=== PATIENT | female | born 1960 | race Caucasian/White ===

== ENCOUNTER → 2016-11-01 | Outpatient (CLI) | payer OTHER ==
[~2016-11-01] MED LIST: ADVAIR 100-501 EAC1 INH; AMLODIPINE BESYL5 MG PO; BENZTROPINE MESY1 MG PO; EFFEXOR XR75 MG PO; KCL 10 MEQ20 MEQ/100 PO; LIPITOR PO; METHSCOPOLAMINE5 MG PO; MOBIC15 MG PO; NEURONTIN PO; OXYCONTIN PO; OXYCONTIN30 MG PO; PROAIR HFA8.5 GM INH; ROBAXIN PO; SKELAXIN400 MG PO; TOPAMAX PO; TOPIRAMATE100 MG PO; VENLAFAXINE HC150 MG PO; VITAMIN B122500 MC1; VITAMIN D250000 UNIT PO; WELLBUTRIN SR PO
--- NOTE | ~2016-11-01 | CR63 ---
[facility] A Service of [facility] RADIOLOGY TEXT RESULTS PATIENT: APRIL OGDEN LOCATION: [facility] : [birth year] UNIT #: [id number] AGE: [address]: Edmond Giraldo MD SEX: F ORDER DR: [id number] [facility] [address] [place], [place] [address] [id number] O MR#: [id number] Acc #: [id number] NAME: APRIL OGDEN : 1960 SEX: F STUDY DATE/TIME: 11/01/2016 14:11 UNIT: [facility] ROOM: STUDY DESCRIPTION: CR Chest 2 View Attending Physician: Edmond Giraldo M.D. Referring Physician: Edmond Giraldo M.D. Ordering Physician: Edmond Giraldo M.D. Primary Care Physician: Marcy Kay M.D. MEDICAL IMAGING REPORT This report is preliminary unless electronic signature is present EXAM Chest PA and lateral 11/01/2016 HISTORY Osteoarthritis right hip, preop right total hip replacement, COPD. FINDINGS The heart is normal in size. The lungs are clear. There are no pleural effusions. IMPRESSION No active pulmonary disease. Dictated by... Kendall Uriarte M.D. THIS IS AN ELECTRONICALLY VERIFIED REPORT Kendall Uriarte M.D. at 11/03/2016 2:26 PM JOHN/evette TD: 11/02/2016 06:39 JOB #: [id number] MEDICAL IMAGING REPORT COPY
--- NOTE | ~2016-11-01 | EKG ---
PATIENT: APRIL OGDEN UNIT #: [id number] Ventricular Rate: 84 BPM Atrial Rate: 84 BPM P-R Interval: 122 ms QRS Duration: 76 ms Q-T Interval: 374 ms QTC Calculation(Bezet): 441 ms P Lajas: 74 degrees Calculated R Lajas: 48 degrees Calculated T Lajas: 60 degrees Diagnosis Line: Normal sinus rhythm Diagnosis Line: Normal ECG Diagnosis Line: When compared with ECG of 16-OCT-2015 16:45, Diagnosis Line: No significant change was found Diagnosis Line: Confirmed by EDVIN GRANDA MD ([id number]) on Diagnosis Line: 11/02/2016 4:11:01 PM INTERPRETING MD: JESUS ALBERTO CEDILLO
--- NOTE | ~2016-11-01 | CO ---
Unit #: [id number] #: [id number] Patient: APRIL OGDEN [id number] [address] [place], [place] [address] [id number] O MR#: [id number] NAME: APRIL OGDEN ROOM: Age: 56 Sex: F Admission Date: 11/01/2016 : 1960 Attending Physician: Edmond Giraldo M.D. Primary Care Physician: Marcy Kay M.D. Consultation Date: 11/01/2016 CONSULTATION REPORT REASON FOR CONSULTATION Preprocedure medical evaluation prior to right total hip arthroplasty scheduled by Dr. Giraldo for 11/15/2016. HISTORY OF PRESENT ILLNESS The patient is a 56-year-old female, who presents to preprocedural screening for the reason as indicated above. She reports pain in her right hip today and inability to spread her legs due to her hip. She has a history of chronic back pain and is established with Dr. Paul in pain management. She denies chest, arm, neck, back, jaw pain or pressure. Denies orthopnea, dyspnea on exertion, paroxysmal nocturnal dyspnea, or obstructive sleep apnea. She denies palpitations, lightheadedness, dizziness, presyncope, or syncope. She denies history of myocardial infarction, congestive heart failure, CVA, TIA, insulin-dependent diabetes mellitus, and/or organ failure history. She has been evaluated by Dr. Giraldo and is scheduled for the above-referenced procedure. PAST MEDICAL HISTORY 1. Osteoarthritis. 2. COPD. 3. Hyperlipidemia. 4. Depression. 5. History of back pain/laminectomy. 6. Neuropathy in the right foot. 7. Insomnia. 8. Chronic pain, established with Dr. Paul. 9. History of anemia, as a child, during . She reports having a colonoscopy approximately 5 years ago with negative results. PAST SURGICAL HISTORY 1. Appendectomy. 2. Laminectomy. 3. [place] teeth extracted. The patient denies personal and family history of complications to anesthesia. ALLERGIES Morphine causes hallucinations. Denies latex allergy. CURRENT MEDICATIONS Effexor XR 150 mg p.o. daily, Neurontin 800 mg p.o. t.i.d., OxyContin 30 mg p.o. b.i.d. (takes two tabs in a.m. and one tab at bedtime) please clarify this dose, Topamax 200 mg p.o. at bedtime, Wellbutrin SR 150 mg Unit #: [id number] #: [id number] Patient: APRIL OGDEN p.o. b.i.d., ProAir HFA two puffs inhaled b.i.d., methocarbamol 750 mg p.o. t.i.d., benztropine mesylate 1 mg p.o. at bedtime (takes 1/2 to 1 at bedtime), Advair 100/50 Diskus one inhalation b.i.d. SOCIAL HISTORY Denies tobacco use, EtOH use, or illicit drug use. FAMILY HISTORY Per review of Dr. Giraldo's office note and confirmation with the patient. None known relative history. REVIEW OF SYSTEMS The patient complains of chronic back pain. A 10-point review of systems is conducted and negative, except as indicated under history of present illness above. PHYSICAL EXAMINATION GENERAL: A 56-year-old female, awake, alert, in no acute distress. VITAL SIGNS: Temperature 98.6, heart rate 83, respiratory rate 16, blood pressure 111/69, oxygen saturation 98% on room air. HEENT: Atraumatic and normocephalic. Sclerae anicteric. No discharge from eyes, ears, or nares. LYMPH: No preauricular, postauricular, tonsillar, submental, anterior or posterior cervical adenopathy. ENDOCRINE: No thyromegaly, thyroid nodules, or tenderness. RESPIRATORY: Clear to auscultation in all diez bilaterally without wheezes, rhonchi, or rales. CARDIOVASCULAR: S1, S2. Regular rate and rhythm without murmur or rub. GI: Bowel sounds are positive x4. Soft, nontender, nondistended. EXTREMITIES: No edema, cyanosis, or clubbing. NEUROLOGIC: Cranial nerves II through XII grossly intact. Speech clear. Alert and oriented x3. Nonfocal. DIAGNOSTIC STUDIES LABORATORY RESULTS: Blood type B positive, antibody screen negative. WBC 4.5, hemoglobin 11.9, hematocrit 36.5, and platelets 175,000. Sodium 143, potassium 3.8, chloride 109, CO2 of 28, glucose 91, BUN 23, creatinine 0.7, calcium 9.4. AST 16, ALT 12, alkaline phos 120, bilirubin total 0.5, total protein 6.4, albumin 3.8. PT 9.6, INR 0.9. Urinalysis; culture and sensitivity not indicated. MRSA nasal swab report pending at this time. IMAGING STUDIES: Two-view chest x-ray report pending at this time. CARDIOVASCULAR STUDIES: A 12-lead EKG, normal sinus rhythm, normal ECG, confirmed report pending at this time. IMPRESSION The patient is a 56-year-old female, who presents to preprocedural screening for: 1. Preoperative medical evaluation prior to right total hip arthroplasty. The patient's Verma revised cardiac risk index is equal to 0.4%. This represents the patient's perioperative risk of cardiac , fatal or nonfatal myocardial infarction, cardiopulmonary arrest, arrhythmia, and/or pulmonary edema. This has been discussed in detail with the patient. She wishes to proceed with surgery as scheduled at this time. Unit #: [id number] #: [id number] Patient: APRIL OGDEN 2. Chronic obstructive pulmonary disease. The patient is followed by her primary care physician with whom she has an appointment to see next week. I have asked her to inform her, if the PCP is not aware of the plans are upcoming elective right total hip arthroplasty and she has verbalized understanding this plan. We will order inhaled bronchodilators and titrate O2 to maintain oxygen saturation greater than 92%. 3. Hyperlipidemia. 4. Depression. 5. History of back pain and laminectomy. The patient is established with Dr. Paul for chronic pain management. 6. Neuropathy of the right foot. The patient will be on fall precautions and ambulating with physical therapy and occupational therapy. 7. Insomnia. 8. History of anemia. Monitor H and H closely postoperatively. Thank you for allowing us to participate in the care of this patient. We will gladly follow her for postop medical management pending order of Dr. Giraldo. Dictated by... Sofía Chavez A.P.R.N. for Thierry Carreno/johnnie TD: 11/02/2016 07:28 JOB #: [id number] CONSULTATION REPORT X Sofía Chavez APRN X CONSULTATION REPORT
[2016-11-01 13:26] LABS: URINE APPEARANCE CLEAR; URINE BILIRUBIN NEG (NEG); URINE BLOOD NEG (NEG); URINE COLOR DK YELLOW; URINE GLUCOSE NEG (NEG); URINE KETONE NEG (NEG); URINE LEUKOCYTE ESTERASE NEG (NEG); URINE NITRATE NEG (NEG); URINE PROTEIN NEG (NEG); URINE SPECIFIC GRAVITY 1.041 (1.003-1.035)
[2016-11-01 13:29] LABS: URINE SOURCE CLEAN CATCH
[2016-11-01 13:30] LABS: CULTURE INDICATED? NO
[2016-11-01 13:33] LABS: HEMATOCRIT 36.5 % (35.0-45.0); HEMOGLOBIN 11.9 gm/dL (12.0-16.0); MEAN CORPUSCULAR HEMOGLOBIN 29.7 PG (28-34); MEAN CORPUSCULAR HGB CONC 32.7 g/dL (30-36); MEAN PLATELET VOLUME 11.3 FL (6.5-11.5); RED BLOOD COUNT 4.01 X10e (3.90-5.30); RED CELL DISTRIBUTION WIDTH 12.9 % (11.0-15.5); WHITE BLOOD COUNT 4.5 X10e3 (4.0-10.5)
[2016-11-01 13:37] LABS: ALBUMIN SERUM 3.8 g/dL (3.5-5.0); ALKALINE PHOSPHATASE 120 U/L (32-92); ALT (SGPT) 12 U/L (10-40); AST (SGOT) 16 U/L (10-42); BILIRUBIN,TOTAL 0.5 mg/dL (0.2-2.0); BLOOD UREA NITROGEN 23 mg/dL (9-23); BUN/CREATININE RATIO 32.85; CALCIUM SERUM 9.4 mg/dL (8.4-10.2); CARBON DIOXIDE 28 mmol/L (22-31); CHLORIDE 109 mmol/L (100-111); CREATININE SERUM 0.7 mg/dL (0.6-1.4); GLOM FILT RATE Estimated ABOVE60 mL/min (>60); GLUCOSE FASTING 91 mg/dL (70-110); POTASSIUM 3.8 mmol/L (3.5-5.1); PROTEIN TOTAL SERUM 6.4 g/dL (6.0-8.3); SODIUM 143 mmol/L (135-145)
[2016-11-01 13:53] LABS: INR 0.9; PROTHROMBIN TIME (PATIENT) 9.6 SECONDS (9.6-11.5)
== END | disposition home or self-care (01) ==
LOC: CAMB 12:06
PROVIDERS: Orthopaedic Surgery
DX: Z01.818 Encounter for other preprocedural examination (principal); M16.11 Unilateral primary osteoarthritis, right hip; J44.9 Chronic obstructive pulmonary disease, unspecified; Z98.890 Other specified postprocedural states
CPT/HCPCS: 36415; 71020; 80053; 81003; 85027; 85610; 86850; 86900; 86901; 87070; 93005

== ENCOUNTER 2016-11-14 21:28 | Emergency (ER) | payer OTHER ==
--- NOTE | ~2016-11-14 | CR151 ---
[facility] A Service of [facility] & [facility] RADIOLOGY TEXT RESULTS PATIENT: APRIL OGDEN LOCATION: [facility] : 62 UNIT #: [id number] AGE: [address]: James Lock MD SEX: F ORDER DR: [id number] [facility] [address] [place], [place] [address] [id number] E MR#: [id number] Acc #: [id number] NAME: APRIL OGDEN : 1960 SEX: F STUDY DATE/TIME: 11/14/2016 21:32 UNIT: [facility] ROOM: STUDY DESCRIPTION: CR Hip Min 2 Views Rt Attending Physician: James Lock M.D. Ordering Physician: James Lock M.D. Primary Care Physician: Marcy Kay M.D. MEDICAL IMAGING REPORT This report is preliminary unless electronic signature is present EXAM Right hip HISTORY Hip pain after falling this evening. TECHNIQUE 4 views hip were obtained. FINDINGS Advanced degenerative changes are seen in both hips with joint space loss, osteochondral defects and large osteophytes. There is no evidence of fracture or dislocation. Both hips show dysplastic changes on a chronic basis. 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 No acute bony abnormalities are seen. Dictated by... Rd Izaguirre M.D. THIS IS AN ELECTRONICALLY VERIFIED REPORT Rd Izaguirre M.D. at 11/16/2016 11:02 AM DONAL/kinga TD: 11/15/2016 11:59 JOB #: [id number] MEDICAL IMAGING REPORT Page 1 of 1 COPY
--- NOTE | ~2016-11-14 | CR282 ---
[facility] A Service of [facility] & [facility] RADIOLOGY TEXT RESULTS PATIENT: APRIL OGDEN LOCATION: [facility] : 62 UNIT #: [id number] AGE: [address]: James Lock MD SEX: F ORDER DR: [id number] [facility] [address] [place], [place] [address] [id number] E MR#: [id number] Acc #: [id number] NAME: APRIL OGDEN : 1960 SEX: F STUDY DATE/TIME: 11/14/2016 21:28 UNIT: [facility] ROOM: STUDY DESCRIPTION: CR Wrist Min 3 View Rt Attending Physician: James Lock M.D. Ordering Physician: James Lock M.D. Primary Care Physician: Marcy Kay M.D. MEDICAL IMAGING REPORT This report is preliminary unless electronic signature is present EXAM Right wrist HISTORY Patient fell 10/07 with wrist pain. TECHNIQUE 4 views of the wrist were obtained. FINDINGS Wrist evaluation in multiple projections shows normal mineralization of the bony structures about the wrist and satisfactory articular relationship of the radius and ulna to the proximal carpal row and of the distal carpal segments to the metacarpal bases. There is no indication of fracture or dislocation, and no soft tissue radiopaque foreign body is present. No congenital defects are apparent. IMPRESSION Normal right wrist. Dictated by... Rd Izaguirre M.D. THIS IS AN ELECTRONICALLY VERIFIED REPORT Rd Izaguirre M.D. at 11/16/2016 11:02 AM Teto TD: 11/15/2016 11:41 JOB #: [id number] MEDICAL IMAGING REPORT Page 1 of 1 COPY
[~2016-11-14 21:28] MED LIST changes: -AMLODIPINE BESYL5 MG PO; -OXYCONTIN30 MG PO; -TOPIRAMATE100 MG PO; -VENLAFAXINE HC150 MG PO; -VITAMIN B122500 MC1; -VITAMIN D250000 UNIT PO
[2017-03-21] MEDS ORDERED: AMLODIPINE BESYL5 MG PO (11:28)
[2017-03-21] MEDS ORDERED: VENLAFAXINE HC150 MG PO (11:30)
[2017-03-21] MEDS ORDERED: TOPIRAMATE100 MG PO (11:35)
[2017-03-21] MEDS ORDERED: VITAMIN D250000 UNIT PO (11:35)
[2017-03-21] MEDS ORDERED: OXYCONTIN30 MG PO (11:36)
[2017-03-21] MEDS ORDERED: VITAMIN B122500 MC1 (11:37)
== END 2016-11-14 23:36 | disposition home or self-care (01) ==
LOC: CED 21:28
DX: S63.501A Unspecified sprain of right wrist, initial encounter (principal); S70.01XA Contusion of right hip, initial encounter; M19.90 Unspecified osteoarthritis, unspecified site; J44.9 Chronic obstructive pulmonary disease, unspecified; F32.9 Major depressive disorder, single episode, unspecified; W19.XXXA Unspecified fall, initial encounter; Y92.009 Unspecified place in unspecified non-institutional (private) residence as the place of occurrence of the external cause
CPT/HCPCS: 36415; 73110; 73502; 96374; 99284; J3010

== ENCOUNTER 2016-11-15 07:54 | Inpatient (IN) | payer OTHER ==
--- NOTE | ~2016-11-15 | DS ---
Unit #: [id number] #: [id number] Patient: APRIL OGDEN [id number] [address] [address] [id number] I MR#: [id number] NAME: APRIL OGDEN ROOM: [facility] Age: 56 Sex: F Admission Date: 11/15/2016 : 1960 Discharge Date: Attending Physician: Edmond Giraldo M.D. Referring Physician: Edmond Giraldo M.D. Primary Care Physician: Marcy Kay M.D. DISCHARGE SUMMARY ADMITTING DIAGNOSIS Right hip osteoarthritis. DISCHARGE DIAGNOSIS Right hip osteoarthritis. HOSPITAL COURSE On 11/15/2016, Ms. Ogden underwent a right total hip arthroplasty. The patient tolerated the procedure well. She was transported to the 4th floor. She underwent physical therapy, medical management, and anticoagulation therapy. She is doing well and is ready to be discharged. DISPOSITION Stable at discharge. Discharged to the new rehab on the 3rd floor. MEDICATIONS ON DISCHARGE Include her routine home medications. In addition, Sontag 10/325 and aspirin 325 mg p.o. b.i.d. FOLLOWUP AND INSTRUCTIONS Ms. Ogden is going to be discharged to this new rehab. The patient will need physical therapy for dislocation, precautions, and ambulation. The patient is weightbearing as tolerated. Followup appointment with Dr. Giraldo in 6 weeks. Please call our office for that appointment date and time. Dictated by... Dorina Costa P.A.C. for Thierry Morrison/johnnie TD: 11/17/2016 03:21 JOB #: [id number] Unit #: [id number] #: [id number] Patient: APRIL OGDEN DISCHARGE SUMMARY Page 1 of 1 X Dorina Costa DISCHARGE SUMMARY
--- NOTE | ~2016-11-15 | OR ---
Unit #: [id number] #: [id number] Patient: APRIL OGDEN [id number] [facility] [place], [place] [address] [id number] I MR#: [id number] NAME: APRIL OGDEN ROOM: [facility] Date of Procedure: 11/15/2016 Admission Date: 11/15/2016 Surgeon: Edmond Giraldo M.D. : 1960 Attending Physician: Edmond Giraldo M.D. Referring Physician: Edmond Giraldo M.D. Primary Care Physician: Marcy Kay M.D. OPERATIVE REPORT PREOPERATIVE DIAGNOSIS Primary localized osteoarthritis of the right hip. POSTOPERATIVE DIAGNOSIS Primary localized osteoarthritis of the right hip. PROCEDURE PERFORMED Right total hip. ASSISTANTS Aleksandra and Jamia. ANESTHESIA General. ESTIMATED BLOOD LOSS 300 mL. INDICATIONS FOR SURGERY This is a 56-year-old lady with severe arthritis of the right hip. Because of the pain, she has difficulty walking or standing. She was not sleep well at night. X-rays show severe arthritis with [id number] and subchondral sclerosis and periarticular osteophytes. She is brought to the hospital today for right total hip. DESCRIPTION OF PROCEDURE The patient was brought to the operating room and given 1 g Ancef. This will be continued postop, but discontinued within 23 hours the start time of surgery. She was then given a general anesthetic, placed in decubitus position with the right side up. The right hip was prepped and draped in a sterile fashion. A modified Aufranc incision was mapped out and made. The subcutaneous dissected away and the fascia split longitudinally. Short rotators were taken down with the cautery unit. The posterior hip capsule was identified and this was T'd open. The hip was dislocated. The neck osteotomy performed. The head fragment removed. The femur was retracted anteriorly. The labrum was debrided and then the acetabulum was reamed with basket reamers up to a 51. A 52 mm Whipple Porocoat shell was inserted in 40 degrees of abduction and 20 degrees of forward flexion. We then positioned the neutral 36 trial liner in the cup. The piriformis sinus was cleaned out with a rongeur and a knife. Starter reamer passed down. Rigid reamers were used up to a size 5. Broaches were used up to a size 5 and then a trial reduction was carried out with a standard offset Unit #: [id number] #: [id number] Patient: APRIL OGDEN neck and the hip was stable in all directions with a 1.5, 36 mm trial head and leg length seemed appropriate. We then removed all the trials. The real liner which was a ceramic liner was impacted into the cup. The real stem was impacted in 20 degrees of anteversion and then a ceramic 1.5, 36 mm head was applied. Once again, stability was excellent in all directions. Leg lengths appeared to be appropriate. The rest of the ropivacaine mixture was injected. The wound was then closed using 0 Vicryl in the capsule. The fascia was closed with a running #1 Stratafix suture. The subcutaneous was closed with 0 and 2-0 Vicryl and natividad in the skin. Sterile dressing applied. Abduction pillow positioned. Her general anesthetic was reversed. chemistry research assistant, Justice Lake, was present throughout the entire case. Dictated by... Thierry Morrison/johnnie TD: 11/16/2016 03:48 JOB #: [id number] OPERATIVE REPORT Page 1 of 1 X Edmond Giraldo MD PROCEDURE OPERATIVE NOTE
--- NOTE | ~2016-11-15 | DS ---
Unit #: [id number] #: [id number] Patient: APRIL OGDEN [id number] [address] [address] [id number] I MR#: [id number] NAME: APRIL OGDEN ROOM: [facility] Age: 56 Sex: F Admission Date: 11/15/2016 : 1960 Discharge Date: Attending Physician: Edmond Giraldo M.D. Referring Physician: Edmond Giraldo M.D. Primary Care Physician: Marcy Kay M.D. DISCHARGE SUMMARY ADDENDUM PLANNED DATE OF DISCHARGE 11/19/2016 REASON FOR ADMISSION Severe pain in right hip and osteoarthritis. PROCEDURE PERFORMED Right total hip arthroplasty. FURTHER HOSPITAL COURSE The patient's discharge was held because the patient was hypotensive and she was very anemic. The patient was ultimately given two units of packed red blood cells. The patient this evening is in stable condition. Her temperature is 97.7. Her blood pressure is 117/53, heart rate 96 and regular, respirations 16. Her incision of her right hip looks good. There is no drainage. It is healing well. Neurovascular exam is intact. She had 2+ pulse in her right lower extremity. She is in much more stable condition. The patient will need rehabilitation at an inpatient facility. Plan will be for discharge tomorrow after a bed is available. Med rec was updated, Dictated by... Justice Lake P.A.-C- for Edmond Giradlo M.D. SLOAN/petar TD: 11/18/2016 23:28 JOB #: [id number] Unit #: [id number] #: [id number] Patient: APRIL OGDEN DISCHARGE SUMMARY Page 1 of 1 X X DISCHARGE SUMMARY
--- NOTE | ~2016-11-15 | CR145 ---
[facility] A Service of [facility] RADIOLOGY TEXT RESULTS PATIENT: APRIL OGDEN LOCATION: [facility] 455-01 : [birth year] UNIT #: [id number] AGE: [address]: Edmond Giraldo MD SEX: F ORDER DR: [id number] [facility] [address] [place], [place] [address] [id number] I MR#: [id number] Acc #: [id number] NAME: APRIL OGDEN : 1960 SEX: F STUDY DATE/TIME: 11/15/2016 14:20 UNIT: [facility] ROOM: [facility] STUDY DESCRIPTION: CR Hip 1 View Rt Attending Physician: Edmond Giraldo M.D. Referring Physician: Edmond Giraldo M.D. Ordering Physician: Edmond Giraldo M.D. Primary Care Physician: Marcy Kay M.D. MEDICAL IMAGING REPORT This report is preliminary unless electronic signature is present EXAM Right hip 11/15 INDICATIONS Status post total hip arthroplasty today. TECHNIQUE/COMPARISON AP view of the right hip compared 11/14/2016. FINDINGS There has been interval right total hip arthroplasty. Hardware appears well-aligned. There is an equivocal small cortical fracture in the greater trochanter of questionable significance and it could be artifact. Exam is otherwise unremarkable. IMPRESSION Well-positioned right hip arthroplasty. Equivocal tiny cortical fracture in the greater trochanter. Attention on followup recommended. Dictated by... Rd John Jr., M.D. THIS IS AN ELECTRONICALLY VERIFIED REPORT Rd John Jr., M.D. at 11/15/2016 10:31 PM RLK/to TD: 11/15/2016 19:13 JOB #: [id number] MEDICAL IMAGING REPORT COPY
--- NOTE | ~2016-11-15 | CR151 ---
[facility] A Service of [facility] & [facility] RADIOLOGY TEXT RESULTS PATIENT: APRIL OGDEN LOCATION: [facility] 455-01 : [birth year] UNIT #: [id number] AGE: [address]: Edmond Giraldo MD SEX: F ORDER DR: [id number] [facility] [address] [place], [place] [address] [id number] I MR#: [id number] Acc #: [id number] NAME: APRIL OGDEN : 1960 SEX: F STUDY DATE/TIME: 11/17/2016 11:13 UNIT: [facility] ROOM: [facility] STUDY DESCRIPTION: CR Hip Min 2 Views Rt Attending Physician: Edmond Giraldo M.D. Referring Physician: Edmond Giraldo M.D. Ordering Physician: Alayna Gonzales Primary Care Physician: Marcy Kay M.D. MEDICAL IMAGING REPORT This report is preliminary unless electronic signature is present EXAM Right hip 2 views 11/17/2016 1113 hours CLINICAL HISTORY Postop right hip replacement with right hip pain. The patient unable to flex hip, postop. Symptoms began 11/15/2016. FINDINGS AP pelvis, AP and frog lateral views right hip demonstrate postop change right hip replacement with no dislocation or acute fracture. The small lucency seen over the greater trochanter on the postop film 11/15/2016 is not seen. The chronic degenerative changes left hip are stable. IMPRESSION Postop change right hip replacement with no fracture or dislocation. Note that the small lucency seen at the greater trochanter on the postop film 11/15/2016 is not seen today. STAT * RESULT Dictated by... Dulce Smith M.D. THIS IS AN ELECTRONICALLY VERIFIED REPORT Dulce Smith M.D. at 11/18/2016 9:21 AM MATTHEW/rupert TD: 11/17/2016 14:50 JOB #: [id number] MEDICAL IMAGING REPORT Page 1 of 1 COPY
[2016-11-15 20:13] LABS: BASOPHIL% 0.1 % (0-2.5); HEMATOCRIT 25.3 % (35.0-45.0); HEMOGLOBIN 8.3 gm/dL (12.0-16.0); LYMPHOCYTE# 0.3 X10e3 (1.0-3.5); LYMPHOCYTE% 2.9 % (17.0-45.0); MEAN CELL VOLUME 89.7 FL (83-96); MEAN CORPUSCULAR HEMOGLOBIN 29.2 PG (28-34); MEAN CORPUSCULAR HGB CONC 32.6 g/dL (30-36); MEAN PLATELET VOLUME 10.9 FL (6.5-11.5); MONOCYTE# 0.6 X10e3 (0-1.0); MONOCYTE% 5.5 % (3.0-12.0); NEUTROPHIL# 10.1 X10e3 (1.5-7.1); NEUTROPHIL% 91.5 % (40-75); PLATELET COUNT 113 X10e3 (140-420); RED BLOOD COUNT 2.82 X10e (3.90-5.30); RED CELL DISTRIBUTION WIDTH 12.8 % (11.0-15.5)
[2016-11-15 20:15] LABS: DIFF IND NO
[2016-11-16 04:38] LABS: BASOPHIL% 0.2 % (0-2.5); EOSINOPHIL% 0.4 % (0.0-7.0); HEMATOCRIT 23.3 % (35.0-45.0); HEMOGLOBIN 7.6 gm/dL (12.0-16.0); LYMPHOCYTE% 12.8 % (17.0-45.0); MEAN CELL VOLUME 89.9 FL (83-96); MEAN CORPUSCULAR HEMOGLOBIN 29.3 PG (28-34); MEAN CORPUSCULAR HGB CONC 32.6 g/dL (30-36); MEAN PLATELET VOLUME 11.4 FL (6.5-11.5); MONOCYTE# 0.6 X10e3 (0-1.0); MONOCYTE% 7.3 % (3.0-12.0); NEUTROPHIL# 6.3 X10e3 (1.5-7.1); NEUTROPHIL% 79.3 % (40-75); PLATELET COUNT 100 X10e3 (140-420); RED BLOOD COUNT 2.59 X10e (3.90-5.30); RED CELL DISTRIBUTION WIDTH 12.7 % (11.0-15.5); WHITE BLOOD COUNT 7.9 X10e3 (4.0-10.5)
[2016-11-16 04:41] LABS: DIFF IND YES
[2016-11-16 04:59] LABS: BLOOD UREA NITROGEN 16 mg/dL (9-23); BUN/CREATININE RATIO 26.66; CALCIUM SERUM 8.1 mg/dL (8.4-10.2); CARBON DIOXIDE 26 mmol/L (22-31); CHLORIDE 109 mmol/L (100-111); CREATININE SERUM 0.6 mg/dL (0.6-1.4); GLOM FILT RATE Estimated ABOVE60 mL/min (>60); GLUCOSE FASTING 117 mg/dL (70-110); POTASSIUM 3.2 mmol/L (3.5-5.1); SODIUM 142 mmol/L (135-145)
[2016-11-16 05:00] LABS: HYPOCHROMIA SL; PLATELET ESTIMATE DECREASED (NORMAL); RBC NORMAL YES
[2016-11-16 14:13] LABS: HEMATOCRIT 21.6 % (35.0-45.0)
[2016-11-16 14:18] LABS: HEMOGLOBIN 6.9 gm/dL (12.0-16.0)
[2016-11-17 02:04] LABS: BASOPHIL% 0.3 % (0-2.5); EOSINOPHIL# 0.1 X10e3 (0-0.7); EOSINOPHIL% 0.7 % (0.0-7.0); HEMATOCRIT 27.4 % (35.0-45.0); LYMPHOCYTE% 11.2 % (17.0-45.0); MEAN CELL VOLUME 89.3 FL (83-96); MEAN CORPUSCULAR HEMOGLOBIN 29.7 PG (28-34); MEAN CORPUSCULAR HGB CONC 33.3 g/dL (30-36); MONOCYTE# 0.8 X10e3 (0-1.0); MONOCYTE% 8.5 % (3.0-12.0); NEUTROPHIL# 7.2 X10e3 (1.5-7.1); NEUTROPHIL% 79.3 % (40-75); RED BLOOD COUNT 3.07 X10e (3.90-5.30); RED CELL DISTRIBUTION WIDTH 13.5 % (11.0-15.5); WHITE BLOOD COUNT 9.1 X10e3 (4.0-10.5)
[2016-11-17 02:05] LABS: DIFF IND YES; HEMOGLOBIN 9.1 gm/dL (12.0-16.0); PLATELET COUNT 94 X10e3 (140-420)
[2016-11-17 02:24] LABS: HYPOCHROMIA SL; PLATELET ESTIMATE DECREASED (NORMAL)
[2016-11-17 04:15] LABS: BLOOD UREA NITROGEN 16 mg/dL (9-23); BUN/CREATININE RATIO 26.66; CALCIUM SERUM 8.4 mg/dL (8.4-10.2); CARBON DIOXIDE 26 mmol/L (22-31); CHLORIDE 115 mmol/L (100-111); CREATININE SERUM 0.6 mg/dL (0.6-1.4); GLOM FILT RATE Estimated ABOVE60 mL/min (>60); GLUCOSE FASTING 118 mg/dL (70-110); MAGNESIUM 1.7 mg/dL (1.6-3.0); POTASSIUM 3.3 mmol/L (3.5-5.1); SODIUM 146 mmol/L (135-145)
[2016-11-17 09:48] LABS: HEMATOCRIT 29.2 % (35.0-45.0); HEMOGLOBIN 9.9 gm/dL (12.0-16.0)
[2016-11-17 13:44] LABS: HEMATOCRIT 28.7 % (35.0-45.0); HEMOGLOBIN 9.6 gm/dL (12.0-16.0)
[2016-11-17 18:26] LABS: HEMATOCRIT 30.2 % (35.0-45.0)
[2016-11-18 14:38] LABS: HEMATOCRIT 32.2 % (35.0-45.0); HEMOGLOBIN 10.6 gm/dL (12.0-16.0)
[2016-11-18 15:03] LABS: BUN/CREATININE RATIO 27.5; CALCIUM SERUM 8.7 mg/dL (8.4-10.2); CREATININE SERUM 0.4 mg/dL (0.6-1.4); GLOM FILT RATE Estimated 117.3 mL/min (>60)
[2017-03-21] MEDS ORDERED: AMLODIPINE BESYL5 MG PO (11:28)
[2017-03-21] MEDS ORDERED: VENLAFAXINE HC150 MG PO (11:30)
[2017-03-21] MEDS ORDERED: VITAMIN D250000 UNIT PO (11:35)
[2017-03-21] MEDS ORDERED: TOPIRAMATE100 MG PO (11:35)
[2017-03-21] MEDS ORDERED: OXYCONTIN30 MG PO (11:36)
[2017-03-21] MEDS ORDERED: VITAMIN B122500 MC1 (11:37)
== END 2016-11-19 18:57 | DRG 469 ==
LOC: CSUR 07:54 → CPACUOF 09:20 → C4B 17:21
PROVIDERS: Internal Medicine; Nurse Practitioner; Orthopaedic Surgery
PROC: 0SR903Z Replacement of Right Hip Joint with Ceramic Synthetic Substitute, Open Approach (ICD-10-PCS; principal; 2016-11-15 10:00)
PROC: 30233N1 Transfusion of Nonautologous Red Blood Cells into Peripheral Vein, Percutaneous Approach (ICD-10-PCS; 2016-11-16)
DX: M16.11 Unilateral primary osteoarthritis, right hip (principal); T81.19XA Other postprocedural shock, initial encounter; D69.6 Thrombocytopenia, unspecified; E87.0 Hyperosmolality and hypernatremia; G62.9 Polyneuropathy, unspecified; E83.42 Hypomagnesemia; D62 Acute posthemorrhagic anemia; J44.9 Chronic obstructive pulmonary disease, unspecified; G47.00 Insomnia, unspecified; G89.29 Other chronic pain; I95.81 Postprocedural hypotension; E78.5 Hyperlipidemia, unspecified; F32.9 Major depressive disorder, single episode, unspecified; E87.6 Hypokalemia; L30.9 Dermatitis, unspecified; S79.911A Unspecified injury of right hip, initial encounter; S70.01XA Contusion of right hip, initial encounter; W19.XXXA Unspecified fall, initial encounter; Y92.009 Unspecified place in unspecified non-institutional (private) residence as the place of occurrence of the external cause
CPT/HCPCS: 73501; 73502; 80048; 83735; 85014; 85018; 85025; 85610; 86850; 86900; 86901; 86923; 88304; 88311; 94640; 94664; 94760; 97110; 97116; 97163; 97530; 97535; C1776; G8978-GP; G8979-GP; J0131; J0171; J0690; J0735; J1100; J1170; J1885; J2250; J2405; J2795; J3010; J3475; P9016

== ENCOUNTER → 2016-12-28 | Outpatient (CLI) | payer OTHER ==
[~2016-12-28] MED LIST changes: +AMLODIPINE BESYL5 MG PO; +OXYCONTIN30 MG PO; +TOPIRAMATE100 MG PO; +VENLAFAXINE HC150 MG PO; +VITAMIN B122500 MC1; +VITAMIN D250000 UNIT PO
--- NOTE | ~2016-12-28 | CR145 ---
[facility] A Service of [facility] & [facility] RADIOLOGY TEXT RESULTS PATIENT: APRIL OGDEN LOCATION: [facility] : 62 UNIT #: [id number] AGE: [address]: Edmond Giraldo MD SEX: F ORDER DR: [id number] [facility] [address] [place], [place] [address] [id number] O MR#: [id number] Acc #: [id number] NAME: APRIL OGDEN : 1960 SEX: F STUDY DATE/TIME: 12/28/2016 9:58 UNIT: [facility] ROOM: STUDY DESCRIPTION: CR Hip 1 View Rt Attending Physician: Edmond Giraldo M.D. Referring Physician: Edmond Giraldo M.D. Ordering Physician: Edmond Giraldo M.D. Primary Care Physician: Marcy Kay M.D. MEDICAL IMAGING REPORT This report is preliminary unless electronic signature is present EXAM Right hip 12/28/2016 HISTORY 56-year-old female with right hip arthroplasty in October of 2016. Ordered request cross-table lateral x-ray of the right hip arthroplasty. COMPARISON Right hip x-rays 11/14/2016, 11/15/2016, 11/17/2016. FINDINGS Single cross-table lateral view of the right hip again demonstrates postsurgical changes from total right hip arthroplasty. The right hip prosthesis appears normally located. No displaced periprosthetic fracture identified. IMPRESSION Cross-table lateral view of the right hip arthroplasty. The arthroplasty appears normally located. Dictated by... Cuauhtemoc Graff M.D. THIS IS AN ELECTRONICALLY VERIFIED REPORT Cuauhtemoc Graff M.D. at 12/28/2016 6:37 PM ANA/dominik TD: 12/28/2016 12:12 JOB #: [id number] MEDICAL IMAGING REPORT Page 1 of 1 COPY
== END | disposition home or self-care (01) ==
LOC: CRAD 09:20
DX: Z47.1 Aftercare following joint replacement surgery (principal); Z96.641 Presence of right artificial hip joint
CPT/HCPCS: 73501

== ENCOUNTER → 2017-03-21 | Outpatient (CLI) | payer OTHER ==
[2017-03-21 11:05] LABS: HEMATOCRIT 38.6 % (35.0-45.0); HEMOGLOBIN 12.8 gm/dL (12.0-16.0); MEAN CELL VOLUME 88.3 FL (83-96); MEAN CORPUSCULAR HEMOGLOBIN 29.4 PG (28-34); MEAN CORPUSCULAR HGB CONC 33.2 g/dL (30-36); MEAN PLATELET VOLUME 9.9 FL (6.5-11.5); RED BLOOD COUNT 4.37 X10e (3.90-5.30); RED CELL DISTRIBUTION WIDTH 13.6 % (11.0-15.5); WHITE BLOOD COUNT 6.7 X10e3 (4.0-10.5)
[2017-03-21 11:21] LABS: PROTHROMBIN TIME (PATIENT) 10.4 SECONDS (10.0-11.7)
[2017-03-21 11:38] LABS: BUN/CREATININE RATIO 16.66; CALCIUM SERUM 9.5 mg/dL (8.4-10.2); CREATININE SERUM 0.9 mg/dL (0.6-1.4); GLOM FILT RATE Estimated 71.5 mL/min (>60)
[2017-03-21 12:42] LABS: URINE APPEARANCE CLEAR; URINE BILIRUBIN NEG (NEG); URINE BLOOD NEG (NEG); URINE COLOR YELLOW; URINE GLUCOSE NEG (NEG); URINE KETONE TRACE (NEG); URINE LEUKOCYTE ESTERASE TRACE (NEG); URINE NITRATE NEG (NEG); URINE PROTEIN NEG (NEG); URINE SPECIFIC GRAVITY 1.034 (1.003-1.035)
[2017-03-21 13:22] LABS: URINE BACTERIA AUWI NEG (NEGATIVE); URINE SQUAMOUS EPITHELIAL CELL OCC /[HPF]
[2017-03-21 13:23] LABS: CULTURE INDICATED? NO; URINE SOURCE CLEAN CATCH
== END | disposition home or self-care (01) ==
LOC: CAMB 10:00
PROVIDERS: Orthopaedic Surgery
DX: Z01.812 Encounter for preprocedural laboratory examination (principal); M16.12 Unilateral primary osteoarthritis, left hip; J44.9 Chronic obstructive pulmonary disease, unspecified; D64.9 Anemia, unspecified; F32.9 Major depressive disorder, single episode, unspecified; E78.5 Hyperlipidemia, unspecified; G47.00 Insomnia, unspecified; G62.9 Polyneuropathy, unspecified
CPT/HCPCS: 36415; 80048; 81003; 85027; 85610; 86850; 86900; 86901; 87070

== ENCOUNTER 2017-04-04 07:01 | Inpatient (IN) | payer OTHER ==
[~2017-04-04] VITALS: Ht 162.6 cm; Wt 67.5 kg
--- NOTE | ~2017-04-04 | CO ---
Unit #: [id number] #: [id number] Patient: APRIL OGDEN [id number] [address] [address] [id number] I MR#: [id number] NAME: APRIL OGDEN ROOM: 450 Age: 57 Sex: F Admission Date: 04/04/2017 : 1960 Attending Physician: Edmond Giraldo M.D. Primary Care Physician: Marcy Kay M.D. CONSULTATION REPORT REASON FOR CONSULTATION Medical management. HISTORY OF PRESENT ILLNESS The patient is a 57-year-old female well known to our service for the preprocedural screening for the right hip arthroplasty back in October 2016, is status post left total hip replacement today by Dr. Giraldo and has been requested a medical consult for the medical management. The patient has chronic back pain and is established with Dr. Paul in the pain management. She denies chest, arm, neck, back, jaw pain or pressure. Denies orthopnea, dyspnea on exertion, paroxysmal nocturnal dyspnea, or obstructive sleep apnea. She denies palpitations. The patient has history of COPD, emphysema, chronic back pain and is well controlled on the medications. PAST MEDICAL HISTORY 1. History of osteoarthritis. 2. COPD. 3. Hyperlipidemia. 4. Depression. 5. History of back pain. 6. Laminectomy. 7. Neuropathy in the right foot. 8. Insomnia. 9. Chronic pain, established with Dr. Paul. 10. History of anemia. PAST SURGICAL HISTORY 1. History of appendectomy. 2. Laminectomy. 3. [place] teeth extracted. 4. History of right hip replacement. ALLERGIES Morphine causes hallucinations. Denies latex allergy. HOME MEDICATIONS 1. Neurontin. 2. OxyContin. 3. Wellbutrin. 4. ProAir. 5. Methocarbamol. 6. Advair. 7. Amlodipine. Unit #: [id number] #: [id number] Patient: APRIL OGDEN 8. Venlafaxine. 9. Topiramate. 10. Vitamin B12. SOCIAL HISTORY Denies tobacco use, alcohol, or any illicit drug abuse. FAMILY HISTORY Reviewed and none. REVIEW OF SYSTEMS Positive for the pain at the left hip, status post surgery. Also, positive for back pain. Denies any chest pain. Denies any shortness of breath. Denies any headache. Other systems reviewed and all other systems were negative, otherwise as described in H and P. PHYSICAL EXAMINATION GENERAL: On examination, patient is lying on the bed, not in acute distress. VITAL SIGNS: Temperature is 97.7, pulse 71, oxygen saturation is 100%, blood pressure is 126/62. HEENT: Head: Atraumatic, normocephalic. Pupils equal, round, and reactive to light and accommodation. NECK: Supple. LUNGS: Clear to auscultation. Decreased air entry at the bases. No rhonchi. No wheezing. HEART: Regular rate and rhythm. ABDOMEN: Soft. Positive bowel sounds. EXTREMITIES: Patient is status post left total hip replacement. NEUROLOGIC: Awake, oriented. No gross focal motor deficit. DIAGNOSTIC STUDIES LABORATORY: INR is 1. Other labs are pending. ASSESSMENT 1. Osteoarthritis of the left hip, status post total hip replacement postoperative day zero. 2. Chronic obstructive pulmonary disease. 3. Hyperlipidemia. 4. Chronic back pain. PLAN Plan to continue with postop care, status post left total hip replacement and continue with supportive care and continue with deep venous thrombosis prophylaxis and wean off oxygen as tolerated. Further recommendations will follow. Dictated by... Thierry Drake/ericka TD: 04/05/2017 11:48 JOB #: [id number] Unit #: [id number] #: [id number] Patient: APRIL OGDEN SHIRA CONSULTATION REPORT Page 1 of 1 X MICKY XAVIER MD X CONSULTATION REPORT
--- NOTE | ~2017-04-04 | OR ---
Unit #: [id number] #: [id number] Patient: APRIL OGDEN [id number] [address] [place], [place] [address] [id number] I MR#: [id number] NAME: APRIL OGDEN ROOM: [facility] Date of Procedure: 04/04/2017 Admission Date: 04/04/2017 Surgeon: Edmond Giraldo M.D. : 1960 Attending Physician: Edmond Giraldo M.D. Primary Care Physician: Marcy Kay M.D. OPERATIVE REPORT PREOPERATIVE DIAGNOSIS Severe arthritis of the left hip with flexion contracture. POSTOPERATIVE DIAGNOSIS Severe arthritis of the left hip with flexion contracture. PROCEDURE PERFORMED Left total hip. ASSISTANTS Aleksandra and Jamia. ANESTHESIA General. ESTIMATED BLOOD LOSS About 300. INDICATIONS FOR PROCEDURE This is a 57-year-old with severe pain in her left hip. She has had a right hip replaced. She has difficulty walking because of the pain. X-rays show severe arthritis with severe osteophyte formation and subchondral sclerosis. She has tried injections and anti-inflammatories with no relief when she is brought to the hospital today for left total hip. DESCRIPTION OF PROCEDURE The patient was brought to the holding room, given 1 g of Kefzol. This will be continued postop, but discontinued within 23 hours from the start time of surgery. She was then given a general anesthetic, placed in decubitus position with the left side up. Left hip was prepped and draped in a sterile fashion. A modified Aufranc incision was mapped out and made. The subcutaneous dissected away and the fascia split longitudinally. Short rotators taken down with the cautery unit. The posterior hip capsule was identified. This was T'd open and the hip was dislocated. The neck osteotomy performed. The head fragment removed. The femur retracted anteriorly and the labrum was debrided. The acetabulum was reamed up to a 51 and then a 52 mm DePuy cup was inserted in 40 degrees of abduction and 20 degrees of forward flexion. A neutral trial 36 liner was placed in the cup. The starter reamer was passed down and rigid reamers used up to a size 5 and then broaches up to a size 5. Trial reduction was carried out with a standard 36 head. The hip was Unit #: [id number] #: [id number] Patient: APRIL OGDEN stable in all directions. Leg lengths appeared to be appropriate. We then removed all the trials. The real ceramic liner was impacted into the cup. The periacetabular ropivacaine mixture was injected and then the femoral component which was a size 5 [place] stem was impacted into 20 degrees of anteversion. 1.5, 36 head was the appropriate length, so this was opened, it was a ceramic, making this [id number]-nzekstg bearing surface. The hip was reduced. Stability was appropriate and the wound was irrigated with Betadine and bacitracin. The rest of ropivacaine mixture was then used. The capsule was repaired with 0 Vicryl interrupted sutures. The fascia was closed with a running Stratafix #1 suture. Subcutaneous was closed with 0 and 2-0 Vicryl and natividad in the skin. Sterile dressing applied and the patient's abduction pillow positioned and her general anesthetic reversed. Dictated by... Thierry Morrison/johnnie TD: 04/04/2017 19:35 JOB #: [id number] OPERATIVE REPORT Page 1 of 1 X Edmond Giraldo MD X PROCEDURE OPERATIVE NOTE
--- NOTE | ~2017-04-04 | DS ---
Unit #: [id number] #: [id number] Patient: APRIL OGDEN [id number] [facility]. [place], [place] [address] [id number] I MR#: [id number] NAME: APRIL OGDEN ROOM: 450 Age: 57 Sex: F Admission Date: 04/04/2017 : 1960 Discharge Date: 04/05/2017 Attending Physician: Edmond Giraldo M.D. Primary Care Physician: Marcy Kay M.D. DISCHARGE SUMMARY CONSULTING PHYSICIAN HIPS for medical management. REASON FOR ADMISSION Avascular necrosis, left hip. PROCEDURE Left total hip replacement. HOSPITAL COURSE The patient was admitted to [facility] with history of avascular necrosis of the left hip. The patient had undergone the above procedure. Today, her incision is healing well, neurovascular exam is intact. She has 2+ pulses in her lower extremities. The patient does not have any lightheadedness or dizziness this morning. Her temperature is 98.0, blood pressure 100/53, heart rate 107, respiratory 18. The plan will be to send her to [facility] [place] later today if her insurance allows and if she is safe for physical therapy. DISPOSITION To [facility] at [place] if PT thinks the patient is safe. MEDICATIONS The patient will be on her regular home medications with the addition of aspirin 325 mg twice a day for DVT prophylaxis and extra Percocet. The patient will need her skin natividad removed on 04/18/2017 and then Steri-Strips placed for one week. The patient should wear SEJAL hose during the day and off at night. The patient should not shower until the day after natividad are removed. The patient should not drive until seen by Dr. Giraldo on 05/17/2017. The patient will participate in physical therapy which will include evaluate and treat for home safety, knowledge of home exercise program, dislocation precautions. Progressive ambulation, begin with a walker and progress to a cane as tolerated. I went over hip precautions once again with the patient. Dictated by... Justice [place] P.A.-C- for Edmond Giraldo M.D. SLOAN/benton Unit #: [id number] #: [id number] Patient: APRIL OGDEN SHIRA TD: 04/05/2017 09:18 JOB #: [id number] DISCHARGE SUMMARY Page 1 of 1 X X DISCHARGE SUMMARY
--- NOTE | ~2017-04-04 | CR144 ---
[facility] A Service of [facility] & [facility] RADIOLOGY TEXT RESULTS PATIENT: APRIL OGDEN SHIRA LOCATION: C4B 450-01 : [birth year] UNIT #: [id number] AGE: [address]: Edmond Giraldo MD SEX: F ORDER DR: [id number] [facility] [address] [place], [place] [address] [id number] I MR#: [id number] Acc #: [id number] NAME: APRIL OGDEN : 1960 SEX: F STUDY DATE/TIME: 04/04/2017 UNIT: [facility] ROOM: [facility] STUDY DESCRIPTION: CR Hip 1 View Lt Attending Physician: Edmond Giraldo M.D. Ordering Physician: Edmond Giraldo M.D. Primary Care Physician: Marcy Kay M.D. MEDICAL IMAGING REPORT This report is preliminary unless electronic signature is present EXAM Left hip 04/04/2017, 1246 hours HISTORY Hip pain. Postop left hip replacement today. COMPARISON 10/28/2016. FINDINGS AP view left hip demonstrates postop change left hip replacement with non-screwed acetabular component and long-stem femoral component in anatomic alignment. IMPRESSION Postop left hip replacement with anatomic alignment. No fracture seen. Dictated by... Dulce Smith M.D. THIS IS AN ELECTRONICALLY VERIFIED REPORT Dulce Smith M.D. at 04/05/2017 9:25 AM MATTHEW/maya TD: 04/04/2017 19:57 JOB #: [id number] MEDICAL IMAGING REPORT Page 1 of 1 COPY
[2017-04-04 07:43] LABS: PROTHROMBIN TIME (PATIENT) 10.5 SECONDS (10.0-11.7)
[2017-04-04] MEDS ORDERED: OXYCONTIN PO (07:49)
[2017-04-05 03:44] LABS: BASOPHIL% 0.5 % (0-2.5); EOSINOPHIL# 0.1 X10e3 (0-0.7); EOSINOPHIL% 1.6 % (0.0-7.0); HEMATOCRIT 27.8 % (35.0-45.0); HEMOGLOBIN 9.1 gm/dL (12.0-16.0); LYMPHOCYTE# 0.8 X10e3 (1.0-3.5); LYMPHOCYTE% 9.9 % (17.0-45.0); MEAN CELL VOLUME 89.5 FL (83-96); MEAN CORPUSCULAR HEMOGLOBIN 29.4 PG (28-34); MEAN CORPUSCULAR HGB CONC 32.8 g/dL (30-36); MEAN PLATELET VOLUME 9.8 FL (6.5-11.5); MONOCYTE# 0.8 X10e3 (0-1.0); MONOCYTE% 9.7 % (3.0-12.0); NEUTROPHIL# 6.2 X10e3 (1.5-7.1); NEUTROPHIL% 78.3 % (40-75); PLATELET COUNT 222 X10e3 (140-420); RED BLOOD COUNT 3.11 X10e (3.90-5.30); RED CELL DISTRIBUTION WIDTH 13.7 % (11.0-15.5); WHITE BLOOD COUNT 7.9 X10e3 (4.0-10.5)
[2017-04-05 03:45] LABS: DIFF IND NO
[2017-04-05 04:01] LABS: BUN/CREATININE RATIO 12.5; CALCIUM SERUM 8.4 mg/dL (8.4-10.2); CREATININE SERUM 1.2 mg/dL (0.6-1.4); GLOM FILT RATE Estimated 50.5 mL/min (>60); POTASSIUM 3.8 mmol/L (3.5-5.1)
== END 2017-04-05 18:35 | DRG 470 ==
LOC: CSUR 07:01 → CPACUOF 08:15 → CSUR 09:00 → CPACUOF 11:51 → C4B 12:22
PROVIDERS: Internal Medicine; Orthopaedic Surgery
PROC: 0SRB03Z Replacement of Left Hip Joint with Ceramic Synthetic Substitute, Open Approach (ICD-10-PCS; principal; 2017-04-04 09:00)
DX: M16.12 Unilateral primary osteoarthritis, left hip (principal); N17.9 Acute kidney failure, unspecified; Z96.641 Presence of right artificial hip joint; G62.9 Polyneuropathy, unspecified; M41.9 Scoliosis, unspecified; D62 Acute posthemorrhagic anemia; J44.9 Chronic obstructive pulmonary disease, unspecified; E78.5 Hyperlipidemia, unspecified; F32.9 Major depressive disorder, single episode, unspecified; Z87.891 Personal history of nicotine dependence; G89.29 Other chronic pain; M54.9 Dorsalgia, unspecified; R73.9 Hyperglycemia, unspecified; R00.0 Tachycardia, unspecified
CPT/HCPCS: 73501; 80048; 85025; 85610; 88304; 94640; 94760; 97110; 97116; 97161; 97530; C1776; G8978-GP; G8979-GP; J0171; J0690; J0735; J1100; J1170; J1885; J2250; J2405; J2795; J3010